=== PATIENT | male | born 1980 | race Caucasian/White ===

== ENCOUNTER 2023-02-23 12:24 | Emergency (ER) | payer OTHER, SELFPAY ==
--- NOTE | ~2023-02-23 | XR_ITS ---
XR hand RT min 3V 02/23/2023 12:48 INDICATION: Right hand pain PROCEDURE: 3 views right hand COMPARISON: No prior studies for comparison. FINDINGS: There is a nondisplaced fracture ventral base of the first distal phalanx. The soft tissues appear within normal limits. No foreign bodies are identified. IMPRESSION: 1: Nondisplaced fracture ventral base right first distal phalanx. Reviewed, dictated and finalized at location L. [employer]
[2023-02-23 12:39] VITALS: BP 139/93; PULSE 95; RESP 16; TEMP 36.9; O2SAT 98
--- NOTE | 2023-02-23 12:40 | ED.UPPEXIN ---
HPI - Extremity Injury (Upper) General Chief Complaint: Extremity Injury, Upper Stated Complaint: R HAND PAIN/INJURY Source: patient Mode of arrival: ambulatory Limitations: no limitations History of Present Illness HPI narrative: 42 y/o male presented for c/o right hand pain after injury last evening. States he fell onto the hand after trying to jump over a cough, now has thumb pain and swelling. Reports decreased ROM to the thumb due to pain. Rates pain 8/10. Denies numbness, tingling or weakness of the hand/thumb. Took ibuprofen today. Left hand dominant. Related Data Home Medications Medication Instructions Recorded Confirmed bupropion HCl 300 mg 24 hr tablet, mg PO 02/23/23 extended release guanfacine 1 mg tablet,extended mg PO 02/23/23 release 24 hr naltrexone 50 mg tablet mg 02/23/23 Allergies Allergy/AdvReac Type Severity Reaction Status Date / Time No Known Allergies Allergy Verified 02/23/23 12:35 Review of Systems Review of Systems: CONSTITUTIONAL: Denies body aches, fever, chills EYES: Denies visual changes ENT: Denies rhinorrhea, congestion CARDIOVASCULAR: Denies chest pain, palpitations, or edema. RESPIRATORY: Denies cough or dyspnea. GASTROINTESTINAL: Denies abdominal pain, nausea, vomiting, or diarrhea. SKIN: Denies rash, itching, or wounds. MUSCULOSKELETAL: Reports right hand/thumb pain Denies back pain, joint pain, or myalgia. NEUROLOGIC: Denies headache, numbness, tingling, or weakness. All systems reviewed & are unremarkable except as noted in HPI and below [facility] Past Medical History Medical History (Updated 02/23/23 @ 15:18 by Monica Cassidy APRN) No pertinent past medical history Comments At time of signature, I have reviewed and agree with nursing past medical, surgical, social and family history unless otherwise noted. Please see nursing chart for further information. There is no relevant family history pertinent to the presenting complaint Exam Narrative: GENERAL: Well-appearing CHEST: Speaks in full sentences. No respiratory distress. HEART: Regular rate and rhythm. Normal and equal peripheral pulses. EXTREMITIES: Right thumb slightly limited range of motion to base of thumb endorses pain with movement. Mild swelling to the base of the thumb palmar aspect with tenderness to palpation over 1st metacarpal area. Full ROM to distal phalanx, nontender. No ecchymosis. Right hand has normal strength and sensation. No open wounds, or obvious deformity; alignment normal, pulse palpable and equal bilaterally, skin warm, dry, pink. Capillary refill less than 3 seconds. SKIN: Warm, dry, no rash. NEURO: Alert and oriented x3. PSYCH: Normal mood and affect Course Course Emergency Course: Patient is aware of diagnosis, understands and agrees to treatment plan. Anticipatory guidance given. Patient agrees to follow-up as directed and is aware of reasons to seek care at the emergency department. Portions of this record may have been created with voice recognition software Level of Care: Express Care Visit Vital Signs Vital signs: Vital Signs Temperature 98.4 F 02/23/23 12:39 Pulse Rate 95 02/23/23 12:39 Respiratory Rate 16 02/23/23 12:39 Blood Pressure 139/93 H 02/23/23 12:39 Pulse Oximetry 98 02/23/23 12:39 Temperature 98.4 F 02/23/23 12:39 Pulse Rate 95 02/23/23 12:39 Respiratory Rate 16 02/23/23 12:39 Blood Pressure 139/93 H 02/23/23 12:39 Pulse Oximetry 98 02/23/23 12:39 Reviewed MDM - Extremity Injury (Upper) MDM Narrative Medical decision making narrative: Results of x-ray reviewed with patient. No pain to the site of a nondisplaced fracture. Discussed physical exam findings. Offered OCL for more support. He was agreeable to Yrn wrap only. Advised supportive measures and signs/symptoms to go to the ER. Pt is appropriate for outpt treatment and f/u. Differential Diagnosis Differential diagnosis: Likely spr
== END 2023-02-23 13:18 | disposition home or self-care (01) ==
PROVIDERS: Emergency Provider Nurse Practitioner Family
DX: M79.641 Pain in right hand (principal)
CPT/HCPCS: 73130; 99203; G0463

== ENCOUNTER 2023-03-23 15:24 | Emergency (ER) | payer OTHER, SELFPAY ==
--- NOTE | ~2023-03-23 | XR_ITS ---
EXAMINATION: XR hand RT min 3V, XR wrist RT min 3V DATE: 03/23/2023 15:56 INDICATION: Right hand and wrist pain post injury TECHNIQUE: 1. Posteroanterior, ulnar deviation, oblique, and lateral views of the right wrist were obtained. 2. Dorsal palmar, oblique and lateral views of the right hand were obtained. COMPARISON: None. FINDINGS: Alignment of the right hand and wrist is normal. No fracture identified. Joint spaces are normal. No focal soft tissue swelling. IMPRESSION: 1. Negative right hand and wrist radiographs. Reviewed, dictated and finalized at location A. [employer] IMPRESSION: 1. Negative right hand and wrist radiographs.
[2023-03-23 15:39] VITALS: BP 122/83; PULSE 97; RESP 16; TEMP 36.5; O2SAT 99
--- NOTE | 2023-03-23 16:14 | ED.UPPEXIN ---
HPI - Extremity Injury (Upper) General Chief Complaint: Extremity Injury, Upper Stated Complaint: R HAND INJURY Time Seen by Provider: 03/23/23 15:40 Source: patient Mode of arrival: ambulatory Limitations: no limitations History of Present Illness HPI narrative: Nam is a 42-year-old male patient presenting to the clinic today with complaints of right hand/wrist injury. He reports he was seen back on February 23 and had x-rays of his hand completed from a fall injury and was diagnosed with a nondisplaced proximal thumb fracture. Denied pain over that area that time and was told to use a thumb spica splint. States that the pain to the thumb improved over the last few weeks however he re-injured his hand/wrist on Monday when his daughter was jumping off the couch and he went to catch her. States that he is having pain to the entire wrist and to the base of the palm Related Data Home Medications Medication Instructions Recorded Confirmed bupropion HCl 300 mg 24 hr tablet, 300 mg PO DAILY 02/23/23 02/23/23 extended release guanfacine 1 mg tablet,extended 1 mg PO DAILY 02/23/23 02/23/23 release 24 hr naltrexone 50 mg tablet 50 mg PO DAILY 02/23/23 02/23/23 lurasidone 20 mg tablet mg 03/23/23 Allergies Allergy/AdvReac Type Severity Reaction Status Date / Time No Known Allergies Allergy Verified 03/23/23 15:36 Review of Systems Review of Systems: Pertinent positives per HPI. Patient denies any fever, chills, rash, headache, visual changes, dizziness, cough, shortness of breath, chest pain, palpitations, nausea, vomiting, diarrhea, constipation, abdominal pain, or any urinary issues. [facility] Past Medical History Medical History No pertinent past medical history Comments At the time of my signature, I reviewed and agree with the nursing past medical, surgical, social, and family history. There is no relevant family history pertinent to the patient complaint. Exam Narrative: General: Well-developed, well nourished, in no apparent distress Head: Normocephalic, atraumatic. Cardio: Regular rate and rhythm, s1 and s2 normal, no murmur appreciated. Resp: Clear to auscultation bilaterally, no rhonchi, rales, wheezing or rubs. Musculoskeletal: No deformity, tender to palpation over the entire wrist joint and over the palm, unwilling to do any range of motion due to the pain,peripheral pulse strong, no edema, no cyanosis, normal gait and station Course Course Emergency Course: Portions of this record may have been created with voice recognition software. Level of Care: Express Care Visit Vital Signs Vital signs: Vital Signs Temperature 36.5 C 03/23/23 15:39 Pulse Rate 97 03/23/23 15:39 Respiratory Rate 16 03/23/23 15:39 Blood Pressure 122/83 03/23/23 15:39 Pulse Oximetry 99 03/23/23 15:39 Temperature 36.5 C 03/23/23 15:39 Pulse Rate 97 03/23/23 15:39 Respiratory Rate 16 03/23/23 15:39 Blood Pressure 122/83 03/23/23 15:39 Pulse Oximetry 99 03/23/23 15:39 Vital signs reviewed MDM - Extremity Injury (Upper) MDM Narrative Medical decision making narrative: At the time of visit patient is resting comfortably on the exam table. Patient appears to be nontoxic. X-rays of the right hand and wrist were performed in the clinic today. X-rays were negative for any sign of fracture or malalignment. Contacted to discuss previous reading of a nondisplaced fracture of the thumb and he stated that it does not appear to be fractured and it may have been an osteophyte that was seen on the previous exam. Supportive measures were discussed with the patient and they voiced understanding discharge instructions and agrees to treatment plan. Return precautions reviewed Differential Diagnosis Differential diagnosis: Likely sprain and strain of wrist, fracture of wrist, finger sprain and other (hand fracture, thumb
== END 2023-03-23 16:20 | disposition home or self-care (01) ==
PROVIDERS: Emergency Provider Nurse Practitioner Family
DX: S63.501A Unspecified sprain of right wrist, initial encounter (principal); S63.91XA Sprain of unspecified part of right wrist and hand, initial encounter; X58.XXXA Exposure to other specified factors, initial encounter
CPT/HCPCS: 73110; 73130; 99213; G0463